=== PATIENT | female | born 1955 | race Caucasian/White ===

== ENCOUNTER 2024-11-10 10:21 | Outpatient (CLI) | payer SELFPAY ==
--- NOTE | 2024-11-10 | ECG_ITS ---
Test Date: 2024-11-10 11:30:34 Measurements Intervals [place] Rate: 98 P: 70 NE: 144 QRS: 29 QRSD: 79 T: 59 QT: 349 QTc: 446 Interpretive Statements SINUS RHYTHM POSSIBLE RIGHT ATRIAL ENLARGEMENT LEFT ATRIAL ENLARGEMENT POSSIBLE RIGHT VENTRICULAR CONDUCTION DELAY BASELINE ARTIFACT- V5 BORDERLINE ECG No previous ECG available for comparison Electronically Signed On 11-10-2024 11:49:53 CDT by Delano Beavers D.O.
--- OUTSIDE RECORDS SUMMARY | 2024-11-10 11:51 | XMS_ITS | Clinical Summary ---
Author Organization [facility] Address [address] [place] [address] Care Team Providers Care [employer] Network Specialist Name Role Phone Unavailable Primary Care Provider Unavailabl e Source Comments [facility],non-owned Affiliates and Associated Physician Practices is amultiple site organization consisting of ambulatory clinics and hospital sitesin [place], [place], [place] and [place]. This disclosure is being madepursuant to the Care Everywhere program and may not contain all information available regarding this patient. Last updated 18.[facility] Social History Tobacco Use Types Packs/Day Years Used Date Smoking Tobacco: Never Assessed Comments Unknown Sex and Gender Information Value Date Recorded Sex Assigned at Not on file Legal Sex Female 10:34 AM CDT Gender Identity Not on file Sexual Orientation Not on file Plan of Treatment Health Maintenance Due Date Last Done Comments BONE DENSITY TESTING 1954 COLOGUARD (AGES 45-75) - COL ON CA SCREENING 1954 COLON MONITORING 1954 COLONOSCOPY - COLON CA SCREENING 1954 CT COLONOGRAPHY - COLON CA SCREENING 1954 Colorectal Cancer Screening 1954 FIT - COLON CA SCREENING 1954 FLEX SIG - COLON CA SCREENING 1954 LIPID TESTING 1954 MAMMOGRAM 1954 HEPATITIS C SCREENING 11/06/1972 DTAP/TDAP/TD VACCINES (1 - Tdap) 1973 PNEUMOCOCCAL VACCINE 50+ (1 of 1 - PCV) 2004 ZOSTER VACCINE (1 of 2) 2004 COVID-19 VACCINE (2023-2 5 season) 2024 DEPRESSION SCREENING 06/04/2024 INFLUENZA VACCINE (Season Ended) 2025 Respiratory Syncytial Virus (RSV) Vaccine Pt: or over 60 yrs (1 - 1-dose 75+ series) 2029 HEPATITIS B VACCINE Aged Out No longe r eligible based on patient's age to complete this topic HIB VACCINE Aged Out No longer eligi ble based on patient's age to complete this topic HPV VACCINE Aged Out No longer eligi ble based on patient's age to complete this topic MENINGOCOCCAL (Group B) VACC INE SHARED DECISION-MAKING Aged Out No longer eligibl e based on patient's age to complete this topic MENINGOCOCCAL GROUPS A/C/Y/W VACCINE Aged Out No longer eligible b ased on patient's age to complete this topic Insurance MEDICARE [facility]
== END 2024-11-10 10:22 | disposition home or self-care (01) ==
PROVIDERS: Visit Provider Surgery Plastic and Reconstructive Surgery
DX: Z01.818 Encounter for other preprocedural examination (principal); I51.7 Cardiomegaly
CPT/HCPCS: 93005

== ENCOUNTER 2024-11-25 00:48 | Day surgery (SDC) | payer OTHER, SELFPAY ==
[2024-11-17 14:01] VITALS: BMI 19.3
--- NOTE | 2024-11-17 14:03 | PC.NURSE ---
Report to the Outpatient Waiting Room, entrance under the green pavilion located off [facility], at time ___0830am____ on date _11/25/24 . Planned Procedure Time: __10:30am .? Time changes happen often and if your time is changed the preop area will call you the afternoon before. - You and your visitor will be asked to self-screen and do not enter if you have any COVID symptoms. Please call surgeon if you need to reschedule. - A mask is optional within the hospital at this time. Patients may have- No food or drink from midnight until time of surgery and no smoking, or chewing tobacco (or any form of nicotine). No chewing gum, candy or mints. Take only the following medications with a SIP of water on the morning of surgery: ____Busprione, Clonazepam, Quetiapine, Hydroxyzine and Tylenol if needed DO NOT STOP ANY OF YOUR OTHER PRESCRIPTION MEDICATIONS PRIOR TO SURGERY EXCEPT THE FOLLOWING Hold all vitamins and supplements for 3 days per anesthesiologist. Medications to discontinue per physician NSAIDS/ADVIL/ASPIRIN for [address] Daniel Date to take last dose_11/16/24 Please no make-up, nail romansh, hairspray, perfume, deodorant, or body powder the day of surgery.? No jewelry (including any body piercings) or valuables the day of surgery, leave them at home.? Please take a shower or bath the night before, or the morning of, surgery with an antibacterial soap.?( YELLOW DIAL ) Wear comfortable, loose fitting clothing.? - Jewelry must be removed prior to entering the operating room.? Rings and piercings that are not removed may be cut off. - The hospital will not accept responsibility for valuables.? - Please leave all valuables, including medications, at home the day of surgery. If you are going home after surgery, a licensed truck driver supervisor must drive you home.? - NO public transportation without another adult if you receive anesthesia. - We recommend that an adult stay with you for 24 hours following discharge. - We also recommend that you do not drive, make important decision, drink alcoholic beverages, or take any drugs that were not prescribed by your health care provider for at least 24 hours after your discharge time. Follow any additional instructions given to you from your surgeon. Telephone instructions given to __Patient and asked if any additional questions and then verbalized understanding. Patient advised to call surgeon office or pre surgery nurse liaison [phone] if any additional questions.
[2024-11-25] VITALS (9 sets, daily range): BP systolic 134–164; BP diastolic 71–95; PULSE 102–122; RESP 14–18; TEMP 36.7–36.9; O2SAT 95–100
[2024-11-25] MEDS: TRANEXAMIC ACID 1,000MG/ISO100 1,000 MG/100 ML BAG 200 MG IVPB (09:15)
--- NOTE | 2024-11-25 09:38 | P.PNAN_ITS ---
Anes - Initial Pre Proc Eval Procedure: Operation Date: 11/25/24 10:30 Proposed Procedures p Bilateral Breast Implant Exchange - Ronnie Daniel MD Date/Time: 11/25/24 09:38 Surgeon: Ronnie Daniel MD Pre Op Diagnosis: left breast implant rupture Patient Data Age: 69 Gender: F Height: 1.52 m Weight: 44.8 kg Last Vital Signs Temp 36.9 C 11/25/24 09:00 Pulse 110 H 11/25/24 09:00 Resp 18 11/25/24 09:00 BP 139/84 11/25/24 09:00 Pulse Ox 99 11/25/24 09:00 O2 Del Method Room Air 11/25/24 09:00 Allergies Allergy/AdvReac Type Severity Reaction Status Date / Time No Known Allergies Allergy Verified 11/25/24 08:58 Home Medications ?Medication ?Instructions ?Recorded ?Confirmed ?Type buspirone 30 mg tablet 30 mg PO BID 11/17/24 11/25/24 History clonazepam 0.5 mg tablet 0.5 mg PO BID PRN anxiety 11/17/24 11/25/24 History donepezil 10 mg tablet 10 mg PO DAILY 11/17/24 11/25/24 History hydroxyzine HCl 50 mg tablet 50 mg PO BID 11/17/24 11/25/24 History lisinopril 10 mg tablet 10 mg PO DAILY 11/17/24 11/25/24 History nortriptyline 25 mg capsule 50 mg PO HS 11/17/24 11/25/24 History quetiapine 200 mg tablet 200 mg PO DAILY 11/17/24 11/25/24 History Patient hx anesthesia problems: none Family hx anesthesia problems: none Results Review: All pre-operative results and documents have been reviewed as part of the pre- operative evaluation. [facility] Social History Social History Smoking packs per day: 1 Smoking cigarettes per day: 20.0 Years smoked: 55 Smoking pack-years: 55.00 Smoking status: Current every day smoker Tobacco type: cigarettes Alcohol intake: former Alcohol use details: last drank 32 yrs ago- SOBER Substance use: never Living arrangements: with family Additional living arrangements comments: Spiritual care concerns: No Anes - Eval Final PreProcedure Day of Procedure 11/25/24 09:38 Patient weight: normal Heart: regular rate and rhythm Lungs: clear to auscultation Airway: Mallampati scale class II Neurological: alert and oriented Last oral intake: >/= 8 hours ASA classification: III Emergent: no Anesthetic plan: proceed Anesthesia type and monitoring: general LMA and standard monitoring Results Review: All pre-operative results and documents have been reviewed as part of the pre- operative evaluation. Informed Consent: The patient's anesthetic plan and its attendant risks and benefits were discussed with the patient/family/POA. Questions were solicited and answers provided to the satisfaction of the patient/family/POA.
[2024-11-25] MEDS: LACTATED RINGERS 1,000 ML 30 ML IV CONT ×2 (10:00→11:37)
--- NOTE | 2024-11-25 10:06 | WPDHPUPDATE1 ---
History and Physical Update Update Date/Time: 11/25/24 10:06 History and Physical has been reviewed, including an updated exam of the patient. There are NO changes in the patient's condition. Risks, benefits, and alternatives have been discussed and questions answered. Patient agrees to proceed with procedure.
--- NOTE | 2024-11-25 10:09 | P.OP_ITS ---
Procedure Note - Detailed Date of Procedure 11/25/24 Pre-op Diagnosis left breast implant rupture Post-op Diagnosis Same Procedure Performed Bilateral breast implant exchange Surgeon Ronnie Daniel MD Anesthesia General Findings Previous implants: Textured 225cc saline implants (right intact, left ruptured) No worrisome features. New implants: Bilateral Natrelle Saline smooth 225cc filled to 245cc Right: REF [id number] SN [id number] Left: REF# [id number] SN [id number] Description of Procedure Preoperatively the risks, benefits, alternatives were discussed in extensive detail. I wanted to be very realistic about the risks involved as well as expectations. I was clear about how we could actually make her worse. Answered all questions to satisfaction. Voiced a clear understanding. Consent obtained. She was taken the operating room placed supine on the operating room table. Anesthesia provided by anesthesiology and prepped and draped in a standard sterile fashion. Surgical time-out was taken. 1% lidocaine and 0.25% Marcaine with epinephrine was used to provide a field block. Tegaderm nipple taylor were placed. Fifteen blade used to excise the previous IMF scars. Dissection was continued down until the capsules were identified and entered. Implants removed, findings as above. I then copiously irrigated with 3 L of saline solution on TUR tubing. Bilateral lateral capsulorraphy and medial capsulotomy performed. Verified str ict hemostasis. I then irrigated with Betadine containing solution. On the back table I prepped the implant to remove all air. It was introduced into the pocket and utilizing an implant fill kit filled to the volume above. The fill tubing was removed and I verified the valve sealed. Dressings were placed. She was woken taken to the PACU without difficulty. All instrument sponge counts were correct at the end of the case. Estimated Blood Loss 10 Drains No Packing No Pathology None sent Complications No immediate complications Condition Stable Disposition PACU
[2024-11-25] MEDS: ceFAZolin 2 GM/D5W 50 ML 2 GM/50 ML BAG IVPB (10:29)
[2024-11-25] MEDS: NACL 0.9% IRRIG POUR BOTTLE 900 ML, GENTAMICIN SULFATE INJ 160 MG, ceFAZolin 2 GM, POVI... IRRIGATION (11:13)
[2024-11-25] MEDS: BUPivacaine HCL 0.25% PF 30 ML VIAL INFILTRATE (11:17)
[2024-11-25] MEDS: fentaNYL CITRATE INJ (*CRX) 100 MCG/2 ML VIAL 25 MCG IV PUSH ×4 (11:50→12:24)
== END 2024-11-25 13:30 | disposition home or self-care (01) ==
PROVIDERS: Visit Provider Surgery Plastic and Reconstructive Surgery
PROC: (CPT 19342; principal; 2024-11-25 10:30)
DX: T85.41XA Breakdown (mechanical) of breast prosthesis and implant, initial encounter (principal); Y83.8 Other surgical procedures as the cause of abnormal reaction of the patient, or of later complication, without mention of misadventure at the time of the procedure; I10 Essential (primary) hypertension; F41.9 Anxiety disorder, unspecified; F17.210 Nicotine dependence, cigarettes, uncomplicated; Z98.890 Other specified postprocedural states
CPT/HCPCS: 19370; 19325; J0690; J1100; J1580; J2003; J2004; J2405; J2704; J3010; J7030; J7120